=== PATIENT | female | born 1990 | race Caucasian/White ===

== ENCOUNTER 2016-05-26 04:02 | Inpatient (IN) | payer BC ==
[2016-05-26 06:03] LABS: Hematocrit 43 % (35-47); Hemoglobin 14.6 g/dl (12.0-16.0); Mean Corpuscular HGB Conc 34 g/dl (31-36); Mean Corpuscular Hemoglobin 30 pg (27-31); Mean Corpuscular Volume 88 fL (80-97); Mean Platelet Volume 10 um3 (7.4-10.4); Red Blood Count 4.91 10^6/ul (4.0-5.4); Red Cell Distribution Width 14 % (10.5-15); White Blood Count 17.9 10^3/ul (3.5-10.8)
[2016-05-26 06:22] LABS: Albumin 3.5 g/dL (3.2-5.2); BUN/Creatinine Ratio 21.1 (8-20); Calcium 9.3 mg/dL (8.6-10.3); EGFR Non-African American 98.7 (>60); Globulin 3.2 g/dL (2-4); Total Bilirubin 0.3 mg/dL (0.2-1.0); Total Protein 6.7 g/dL (6.4-8.9); Uric Acid 5.7 mg/dL (2.3-6.6)
[2016-05-26] MEDS ORDERED: OBEPIDURAL* 250 ML ONE (09:16)
[2016-05-26] MEDS ORDERED: fentaNYL* 50 MCG/ML 2 ML VIAL (100 MCG VIAL) ONE ×3 (09:17→12:08)
[2016-05-26] MEDS ORDERED: OXYTOCIN* 10 UNITS/ML 1 ML VIAL ONE (11:45)
[2016-05-26] MEDS ORDERED: Sodium Bicarbonate 8.4% SYR* 10 ML SYRINGE ONE (11:45)
[2016-05-26] MEDS ORDERED: Lidocaine 2% PF* 10 ML AMP ONE (11:45)
[2016-05-26] MEDS ORDERED: Chloroprocaine 3%* 20 ML VIAL ONE (11:45)
[2016-05-26] MEDS ORDERED: Morphine PF AMP (0.5MG/ML)* 5 MG/10 ML AMP ONE (11:46)
[2016-05-26] MEDS ORDERED: ceFOXitin 2 GM IVPREMIX* 2 GM/50 ML BAG ONE (11:46)
[2016-05-26] MEDS ORDERED: Sodium Citrate/Citric Acid* 15 ML UDC ONE (11:47)
[2016-05-26] MEDS ORDERED: Ondansetron INJ* 2 MG/ML VIAL IV PRN ×2 (12:22→12:23)
[2016-05-26] MEDS ORDERED: fentaNYL* 50 MCG/ML 2 ML VIAL (100 MCG VIAL) IV PRN (12:22)
[2016-05-26] MEDS ORDERED: oxyCODONE/Acetamin 5/325 MG* TAB PO PRN (12:23)
[2016-05-26] MEDS ORDERED: diPHENhydraMINE IV* 50 MG/ML 1 ml VIAL (BENADRYL) IV PRN (12:23)
[2016-05-26] MEDS ORDERED: Naloxone* 0.4 MG/ML 1 ML VIAL IV PRN (12:23)
[2016-05-26] MEDS ORDERED: Acetaminophen TAB* 325 MG PO PRN (12:59)
[2016-05-26] MEDS ORDERED: Witch Hazel PAD* JAR TOPICAL PRN (12:59)
[2016-05-26] MEDS ORDERED: Dibucaine 1% 28.35 GM TUBE PR PRN (12:59)
[2016-05-26] MEDS ORDERED: Glycerin ADULT SUPP PR PRN (12:59)
[2016-05-26] MEDS ORDERED: Oxytocin in LR* 20 UNITS/1,000 ML BAG IVPB SCH (13:00)
[2016-05-26] MEDS: Ketorolac INJ* 30 MG/ML 1 ML VIAL IV PRN ×2 (14:17→21:44)
[2016-05-26] MEDS: Simethicone TAB* 80 MG TAB.CHEW PO SCH ×2 (18:36→21:43)
[2016-05-26] MEDS: oxyCODONE/Acetamin 5/325 MG* TAB PO PRN (18:36)
--- NOTE | 2016-05-26 21:33 | OP ---
AMENDED REPORT NOW INCLUDES DATE OF OPERATION - ESIGNED BEFORE ADJUSTMENT * DATE OF OPERATION: 05/26/16 - ROOM #[id number] DATE OF : 88 SURGEON: Juan Warner MD ENGINEERING DOCUMENTATION SPECIALIST: Aiyana Lim CNM ANESTHESIOLOGIST: Ean Miller MD ANESTHESIA: Epidural. PRE-OP DIAGNOSES: Category 2 tracing, remote from delivery. POST-OP DIAGNOSES: Category 2 tracing, remote from delivery, meconium and placental insufficiency. OPERATIVE PROCEDURE: Low transverse section. ESTIMATED BLOOD LOSS: 600 cc. INDICATIONS: This is a 26-year-old 2, para 0 who presented at term in labor. She initially had some late decelerations, but responded to hydration. She then received an epidural, got to 4 cm and had repetitively decelerations. For this reason, because of concern over compromise, the risks, benefits, alternatives, indications of the section were discussed with the patient. The patient has then agreed. She had a viable female, Apgars were 8 and 9, the weight was 5 pounds 7 ounces. FINDINGS: Include placenta with necrotic areas and meconium staining. Normal- appearing uterus, fallopian tubes, and ovaries. The uterus did contain a small anterior 2 cm fibroid. Otherwise, appeared normal. DESCRIPTION OF PROCEDURE: The patient identified and procedure identified as a low transverse section. The patient was taken to the operating room and prepped and draped in the usual fashion in the left lateral recumbent position under epidural anesthesia. A Pfannenstiel incision was made in the abdomen and carried down through fat, fascia, and peritoneum. A transverse incision was made in the lower uterine segment and extended laterally using blunt dissection. The above infant was delivered through the incision with ease. The cord was doubly clamped and cut, and the was handed to the awaiting nipple machine operator. Cord blood was obtained as well as cord pH. The placenta was delivered spontaneously. The uterus was wiped out with a wet lap sponge. The uterine incision was then closed using 0 Polysorb in a running fashion. A second layer was used to imbricate the first layer. Good hemostasis was verified. The uterus was placed back in the abdominal cavity. The gutters were wiped out with a wet lap sponge. The peritoneum was then closed using 3-0 Polysorb in a running fashion. Good hemostasis achieved in the subrectus layers. The fascia was closed using 0 Polysorb in a running fashion. Hemostasis was achieved in the subcu and the skin was closed with a 4- 0 Monocryl in a subcuticular fashion. All sponge and instrument counts were correct. The patient returned to the recovery room in a stable condition. [id number]/[facility] #: [id number] MTDD
[2016-05-26] MEDS: Docusate CAP* 100 MG PO SCH ×2 (21:44→21:45)
[2016-05-27] MEDS: Ketorolac INJ* 30 MG/ML 1 ML VIAL IV PRN (03:59)
[2016-05-27] MEDS ORDERED: Zolpidem TAB* 5 MG PO PRN (04:00)
[2016-05-27] MEDS ORDERED: oxyCODONE/Acetamin 5/325 MG* TAB PO PRN (04:00)
[2016-05-27] MEDS: oxyCODONE/Acetamin 5/325 MG* TAB PO PRN ×3 (04:00→21:13)
[2016-05-27 07:58] LABS: Hematocrit 35 % (35-47); Hemoglobin 11.5 g/dl (12.0-16.0); Mean Corpuscular HGB Conc 34 g/dl (31-36); Mean Corpuscular Hemoglobin 30 pg (27-31); Mean Corpuscular Volume 90 fL (80-97); Mean Platelet Volume 10 um3 (7.4-10.4); Red Blood Count 3.84 10^6/ul (4.0-5.4); Red Cell Distribution Width 14 % (10.5-15); White Blood Count 11.9 10^3/ul (3.5-10.8)
[2016-05-27] MEDS: Simethicone TAB* 80 MG TAB.CHEW PO SCH ×4 (09:07→21:10)
[2016-05-27] MEDS: Docusate CAP* 100 MG PO SCH ×3 (09:07→21:10)
[2016-05-27] MEDS: Labetalol TAB* 100 MG PO SCH ×2 (09:08→21:10)
[2016-05-27] MEDS: Ferrous Gluconate TAB* 324 MG TAB PO SCH ×2 (09:08→19:16)
[2016-05-27] MEDS: Ibuprofen TAB* 600 MG PO PRN ×3 (11:40→23:17)
[2016-05-28] MEDS: oxyCODONE/Acetamin 5/325 MG* TAB PO PRN ×5 (01:41→21:44)
[2016-05-28] MEDS: Ibuprofen TAB* 600 MG PO PRN ×3 (06:02→17:56)
[2016-05-28] MEDS: Labetalol TAB* 100 MG PO SCH ×2 (08:29→21:44)
[2016-05-28] MEDS: Docusate CAP* 100 MG PO SCH ×3 (08:29→21:44)
[2016-05-28] MEDS: Simethicone TAB* 80 MG TAB.CHEW PO SCH ×4 (08:30→21:44)
[2016-05-29] MEDS: oxyCODONE/Acetamin 5/325 MG* TAB PO PRN ×2 (02:56→10:24)
[2016-05-29] MEDS: Ibuprofen TAB* 600 MG PO PRN ×2 (02:57→10:24)
[2016-05-29] MEDS: Simethicone TAB* 80 MG TAB.CHEW PO SCH ×2 (08:12→13:00)
[2016-05-29] MEDS: Labetalol TAB* 100 MG PO SCH (08:12)
[2016-05-29] MEDS: Docusate CAP* 100 MG PO SCH (08:12)
[2016-05-29 10:12] VITALS: BP 139/104
[2016-05-29 14:31] LABS: Urine Bacteria Absent (Absent); Urine Bilirubin Negative (Negative); Urine Glucose Negative (Negative); Urine Nitrite Negative (Negative)
== END 2016-05-29 13:36 | disposition home or self-care (01) | DRG 540 ==
LOC: MCHOBOUT 04:02 → MCHOB 06:44
PROVIDERS: ADMIT Nurse Practitioner; ATTEND Obstetrics & Gynecology
PROC: 10907ZC Drainage of Amniotic Fluid, Therapeutic from Products of Conception, Via Natural or Artificial Opening (ICD-10-PCS; 2016-05-26)
PROC: 10D00Z1 Extraction of Products of Conception, Low, Open Approach (ICD-10-PCS; principal; 2016-05-26 11:50)
DX: O76 Abnormality in fetal heart rate and rhythm complicating labor and delivery (principal); O36.5130 Maternal care for known or suspected placental insufficiency, third trimester, not applicable or unspecified; O48.0 Post-term pregnancy; O77.0 Labor and delivery complicated by meconium in amniotic fluid; E04.9 Nontoxic goiter, unspecified; O99.284 Endocrine, nutritional and metabolic diseases complicating childbirth; Z3A.40 40 weeks gestation of pregnancy; Z37.0 Single live birth
CPT/HCPCS: 36415; 80053; 81002; 81003; 81015; 84550; 85025; 86850; 86900; 86901; 88307; A9270-GY; J0694; J1885; J2001; J2400; J2590; J3010

== ENCOUNTER 2018-11-07 05:46 | Day surgery (SDC) | payer BC ==
[~2018-11-07 05:46] MED LIST: Buffered Lidocaine 1% SYRIN* 1 ML/SYRINGE INTRADERM ONE
[2018-11-07] MEDS ORDERED: Famotidine IV* 10 MG/ML 2 ML (20 mg) IV ONE (06:00)
[2018-11-07] MEDS ORDERED: Lactated Ringers 1000 ML Bag* 1,000 ML IV SCH (06:00)
[2018-11-07] MEDS ORDERED: Famotidine IV* 10 MG/ML 2 ML (20 mg) ONE (06:04)
[2018-11-07] MEDS ORDERED: ceFAZolin 2 GM in NS PREMIX(*) 2 GM/100 ML BAG IVPB ONE (06:04)
[2018-11-07] MEDS ORDERED: Dexamethasone IV* 4 MG/ML 1 ML (4 MG) ONE (07:06)
[2018-11-07] MEDS ORDERED: Propofol* 10 MG/ML 20 ML BTL ONE (07:06)
[2018-11-07] MEDS ORDERED: Ondansetron INJ* 2 MG/ML VIAL ONE (07:06)
[2018-11-07] MEDS ORDERED: Lidocaine 2% PF * 5 ML VIAL ONE (07:06)
[2018-11-07] MEDS ORDERED: fentaNYL* 50 MCG/ML 2 ML VIAL (100 MCG VIAL) ONE (07:07)
[2018-11-07] MEDS ORDERED: Midazolam* 1 MG/ML 5 ML VIAL (5 MG) ONE (07:07)
[2018-11-07] MEDS ORDERED: Lidocaine 1% w EPI 1:100,000* MDV 20 ML VIAL ONE (07:11)
[2018-11-07] MEDS ORDERED: Bupivacaine 0.5%* 50 ML MDV VIAL ONE (07:11)
[2018-11-07] MEDS ORDERED: Bupivacaine 0.25% SDV PF* 10 ML VIAL INJ ONE (07:11)
[2018-11-07] MEDS ORDERED: oxyCODONE/Acetamin 5/325 MG* TAB PO PRN (07:21)
[2018-11-07] MEDS ORDERED: fentaNYL* 50 MCG/ML 2 ML VIAL (100 MCG VIAL) IV PRN (07:21)
[2018-11-07] MEDS ORDERED: Ondansetron INJ* 2 MG/ML VIAL IV PRN (07:21)
[2018-11-07] MEDS ORDERED: Naloxone* 0.4 MG/ML 1 ML VIAL IV PRN (07:21)
[2018-11-07 09:03] VITALS: BP 128/97
== END 2018-11-07 09:33 | disposition home or self-care (01) ==
LOC: OR 05:46
PROVIDERS: ATTEND Plastic Surgery
DX: M67.432 Ganglion, left wrist (principal)
CPT/HCPCS: 81025; 88304; J0690; J1100; J2250; J2405; J2704; J3010; J3490

== ENCOUNTER 2019-04-08 10:17 | Emergency (ER) | payer BC ==
--- NOTE | 2019-04-08 11:27 | UC ---
Hand/Wrist HPI - HPI Summary HPI Summary: PATIENT SLAMMED HER RIGHT THUMB IN A CAR DOOR YESTERDAY AFTERNOON. HAS PAIN AND SWELLING TO HER DISTAL RIGHT THUMB. SUBUNGUAL HEMATOMA ENCOMPASSING HER ENTIRE NAIL. SMALL LACERATION AT THE CUTICLE. UP-TO-DATE TETANUS 03/17/16. - History Of Current Complaint Chief Complaint: UCUpperExtremity Stated Complaint: THUMB INJURY Time Seen by Provider: 04/08/19 11:12 Hx Obtained From: Patient Hx Last Menstrual Period: partner had vasectomy Onset/Duration: Sudden Onset, Lasting Hours, Still Present Severity Initially: Moderate Severity Currently: Moderate Pain Intensity: 8 Pain Scale Used: 0-10 Numeric Character Of Pain: Sharp Aggravating Factor(s): Movement Alleviating Factor(s): Rest Associated Signs And Symptoms: Positive: Swelling, Bruising Related History: Dominant Hand Right - Allergies/Home Medications Allergies/Adverse Reactions: Allergies Allergy/AdvReac Type Severity Reaction Status Date / Time nitrofurantoin Allergy Severe Hives, Verified 11/07/18 06:26 [From Macrobid] swelling PMH/Surg Hx/FS Hx/Imm Hx Endocrine History: Thyroid Disease - Surgical History Surgical History: Yes Surgery Procedure, Year, and Place: 2001 tonsillectomy. 2006 third molars extracted. 2016 and 2018 emergency [id number] with general anesthesia. 2010 lasik eye surgery - Family History Known Family History: Positive: Non-Contributory - Social History Alcohol Use: None Alcohol Amount: 1-2 glasses wine or beer Substance Use Type: None Smoking Status (MU): Never Smoked Tobacco - Immunization History Most Recent Influenza Vaccination: 02/04/16 Most Recent Tetanus Shot: 03/17/16 Most Recent Pneumonia Vaccination: none Review of Systems All Other Systems Reviewed And Are Negative: Yes Constitutional: Positive: Negative Skin: Positive: Bruising Respiratory: Positive: Negative Cardiovascular: Positive: Negative Gastrointestinal: Positive: Negative Musculoskeletal: Positive: Decreased ROM, Edema Physical Exam Triage Information Reviewed: Yes Appearance: Well-Appearing, No Pain Distress, Well-Nourished Vital Signs: Initial Vital Signs Temp 98.5 F 04/08/19 10:53 Pulse 64 04/08/19 10:53 Resp 18 04/08/19 10:53 BP 145/98 04/08/19 10:53 Pulse Ox 100 04/08/19 10:53 Vital Signs Reviewed: Yes Eyes: Positive: Conjunctiva Clear ENT: Positive: Hearing grossly normal Neck: Positive: Supple Respiratory: Positive: No respiratory distress, No accessory muscle use Cardiovascular: Positive: Pulses Normal Abdomen Description: Positive: Soft Musculoskeletal: Positive: ROM Limited @ - RIGHT THUMB, Edema @ - RIGHT DISTAL THUMB, Other: - TTP RIGHT THUMB IP JOINT AND DISTALLY Neurological: Positive: Alert Psychological: Positive: Age Appropriate Behavior Skin: Positive: Other - SUBUNGUAL HEMATOMA RIGHT GREAT THUMBNAIL ENCOMPASSING ENTIRE NAIL. Procedures - Nail Trephination Right Thumb Nail Trephination Location: CENTER Method of Drainage: nail cauterized Sterile Dressing Applied: Yes Finger Splint: No Diagnostics - Radiology RIGHT THUMB XRAYS Radiology Interpretation Completed By: Radiologist Summary of Radiographic Findings: No fracture of the right thumb is noted. Hand/Wrist Course/Dx - Course Course Of Treatment: X-RAY NEGATIVE FOR FRACTURE. TIMEOUT COMPLETE AND NAIL TREPHINATION PERFORMED SUCCESSFULLY WITH SIGNIFICANT BLOOD DRAINAGE. PATIENT HAD IMMEDIATE RELIEF OF SYMPTOMS. STERILE BANDAGE APPLIED BY BK. ALEXANDRA FOR INFECTION PROPHYLAXIS. IBUPROFEN NEEDED FOR DISCOMFORT. FOLLOW-UP IF NEEDED. - Differential Dx/Diagnosis Provider Diagnosis: Subungual hematoma of right thumb Discharge ED - Sign-Out/Discharge Documenting (check all that apply): Patient Departure All imaging exams completed and their final reports reviewed: Yes - Discharge Plan Condition: Stable Disposition: HOME Prescriptions: Cephalexin CAP* [Keflex 500 CAP*] 500 mg PO BID #10 cap Patient Education Materials: Subungual Hematoma (ED) Forms: *Work Release Referrals: Brynn Strong MD [Primary Care Provider] - If Needed Additional Instructions: KEEP THE NAIL CLEAN. OKAY FOR ICE TO HELP WITH SWELLING. OTC MEDS NEEDED FOR DISCOMFORT. TAKE THE ANTIBIOTICS TO HELP PREVENT INFECTION. SEEK FOLLOW-UP IF YOU DEVELOP SPREADING REDNESS OF THE SKIN, PURULENT DRAINAGE, FEVER, INCREASED PAIN OR ANY OTHER CONCERNING SYMPTOMS. - Billing Disposition and Condition Condition: STABLE Disposition: Home
[2019-04-08 13:09] VITALS: BP 138/64
== END 2019-04-08 13:16 | disposition home or self-care (01) ==
LOC: UCEAST 10:17
DX: S60.111A Contusion of right thumb with damage to nail, initial encounter (principal); W23.0XXA Caught, crushed, jammed, or pinched between moving objects, initial encounter; Y92.810 Car as the place of occurrence of the external cause; Z88.1 Allergy status to other antibiotic agents
CPT/HCPCS: 10060; 11740; 99212; G0463